=== PATIENT | female | born 1980 | race Hispanic/Latino ===

== ENCOUNTER 2017-03-22 00:49 | Emergency (ER) | payer OTHER ==
[~2017-03-22] VITALS: Ht 157.5 cm; Wt 72.7 kg
[~2017-03-22 00:49] MED LIST: IMIP10TA3 PO; OMEP20CA11 PO
[2017-03-22 00:55] VITALS: BP 120/78; RESP 20; O2SAT 96
--- NOTE | 2017-03-22 01:54 | ED.REPORT ---
HPI-Ear Pain/Problem/FB Date of Service Mar 22, 2017 ED Provider: Dr. Scott Mackenzie The patient is a 36 year old female w/ a hx of ear infections who presents to the ED with bilateral ear pain onset 6 days ago. C/o associated sore throat and reports that both her ears have been draining excessively. The patient just completed a second round of antibiotics for similar symptoms about a week ago. She was recently in the [facility] and she went swimming in the ocean but not in any fresh bodies of water. Nursing Notes Stated Complaint: EAR PAIN,BOTH EARS Chief Complaint: ENT & Mouth Nursing Notes Reviewed: Yes Allergies: Coded Allergies: No Known Allergies (Verified Allergy, Unknown, 06/06/15) Scheduled Ciprofloxacin (Cipro) 500 Mg Tablet 500 MG PO BID Imipramine HCl (Imipramine HCl) 10 Mg Tablet 10 MG PO HS Omeprazole (Omeprazole) 20 Mg Capsule.dr 20 MG PO DAILY General Time Seen by MD: 01:53 Chief Complaint Ear problem bilateral Hx Obtained From: Patient Arrived By: Walk-in Location: : Inner ear Quality: Painful Severity: Current: Mild Recent Healthcare: Recent doctor visit Similar Sx Previous: Yes Past Medical History Past Medical History eczema Past Surgical History kidney stents Reports: Smoking History Light Tobacco Smoker Social History Alcohol Use: "Social" Drug Use: Denies drug use Other Social History: 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 Physical Exam Initial Vital Signs Vital Signs (First) Date Time Temp Pulse Resp B/P Pulse Ox O2 Delivery O2 Flow Rate FiO2 03/22/17 00:55 36.7 91 20 120/78 96 Room Air Initial VS: Reviewed General/Constitutional: Awake, Alert, Cooperative ENT: Airway patent purulent discharge bilateral swollen and tender could not see inside ears very well due to discharge narrow canals tragus tender on both sides no trismus Head / Eyes: Atraumatic, Normocephalic, PERRL, EOMI Skin: Atraumatic, Warm, Dry Neurologic: Oriented X3, Speech NL, No motor deficits Upper Extremity / MS: Atraumatic, Inspection NL, No deformity Wrist / Hand: Atraumatic, Inspection NL, No deformity Lower Extremity / Pelvis / MS: Atraumatic, Inspection NL, No deformity Ankle / Foot: Atraumatic, Inspection NL, No deformity Re-Eval/Medical Decision Med Decision/Clinical Course 36-year-old with recurrent and persistent otitis externa and media, temporally related to swimming in the ocean in the [facility]. Unknown antibiotics previously used. Home now with Ciprodex plus Cipro orally. Follow up with ENT Dr. Sigala. Discharge & Departure Primary Impression: Otitis externa Otitis externa type: unspecified type Laterality: bilateral Chronicity: chronic Qualified Code: H60.63 - Unspecified chronic otitis externa, bilateral Additional Impression: Otitis media Otitis media type: suppurative Laterality: bilateral Chronicity: acute Recurrence: recurrent Spontaneous tympanic membrane rupture: with spontaneous rupture Qualified Code: H66.016 - Acute suppurative otitis media with spontaneous rupture of ear drum, recurrent, bilateral Disposition: Home Discharge Condition All VS Reviewed: Yes Condition: Stable Patient Instructions: Otitis Media (ED) Additional Instructions: Thank you for entrusting us with your care today. I am sending you home with another round of antibiotics and ear drops. Do not continue to put hydrogen peroxide into your ears. Use Tylenol and Ibuprofen as needed for pain. Follow up with your primary care physician and the [facility]. Return to the Emergency Department if you experience any new or worsening symptoms. I hope you feel better soon! Referrals: NOPCP (PCP) Sonny Sigala MD Attestation Portion of this note were transcribed by Megan Latham. I, Dr. Mackenzie, personally performed the history, physical exam, and medical decision-making: I reviewed and confirmed the accuracy for the information in the transcribed note. Signed by: isaiah Fam, 03/22/17 0300 copies to: Sonny Sigala MD, Christopher W MD Mar 22, 2017 01:54 Megan Latham Mar 22, 2017 02:00
[2017-03-22] MEDS ORDERED: CIPR-231 PO (02:20)
[2017-03-22] MEDS ORDERED: Ciprofloxacin-Dexamethasone 7.5 mL Otic Susp BOTH_EARS SCH ×2 (02:30→06:30)
== END 2017-03-22 02:39 | disposition home or self-care (01) ==
LOC: SED 00:49
DX: H60.63 Unspecified chronic otitis externa, bilateral (principal); H66.016 Acute suppurative otitis media with spontaneous rupture of ear drum, recurrent, bilateral; J02.9 Acute pharyngitis, unspecified; F17.200 Nicotine dependence, unspecified, uncomplicated

== ENCOUNTER 2017-06-14 17:04 | Emergency (ER) | payer OTHER ==
[~2017-06-14] VITALS: Ht 157.5 cm; Wt 70.5 kg
[~2017-06-14 17:04] MED LIST changes: +CIPR-231 PO
[2017-06-14 17:16] VITALS: BP 128/66; PULSE 85; RESP 16; O2SAT 100
--- NOTE | 2017-06-14 18:33 | ED.REPORT ---
HPI-Extremity Problem Lower Date of Service Jun 14, 2017 ED Provider: Montrell Mena DO Pt is an otherwise healthy 37 year old female who presents to the ED complaining of right knee pain onset 2 weeks ago. She c/o associated numbness to her toes and right thigh numbness. Pt also reports paresthesia in her toes and the dorsal aspect of her foot. She denies back pain and trauma to her right leg. The pt reports that she is unable to move her right leg while laying down secondary to weakness, and her pain is exacerbated with movement. Although she denies a history of DM and HTN, she reports that DM and HTN are in her family history. The pt has experienced similar pain 7 years ago, and she states that her x-ray was negative. She reports that she is able to walk, but she limps. Nursing Notes Stated Complaint: RIGHT KNEE PAIN, TINGLING IN RIGHT ANKLE/FOOT Chief Complaint: Extremity Trauma Nursing Notes Reviewed: Yes Allergies: Coded Allergies: No Known Allergies (Verified Allergy, Unknown, 06/06/15) Scheduled Ciprofloxacin (Cipro) 500 Mg Tablet 500 MG PO BID Imipramine HCl (Imipramine HCl) 10 Mg Tablet 10 MG PO HS Omeprazole (Omeprazole) 20 Mg Capsule.dr 20 MG PO DAILY General Time Seen by MD: 18:33 Chief Complaint Other (Knee pain right) Hx Obtained From: Patient Arrived By: Walk-in Onset Occurred: 1 week ago Symptom Duration: Since onset Location: : Knee right: Leg right Quality: Painful Severity: Current: Moderate Severity: Maximum: Moderate Recent Healthcare: No recent doctor visit, No recent hospitalization Similar Sx Previous: Yes Past Medical History Past Medical History eczema Denies: Asthma, Diabetes mellitus, Hypertension Past Surgical History kidney stents Reports: Family History Asthma Reports: Diabetes mellitus, Hypertension Smoking History Light Tobacco Smoker Social History Alcohol Use: "Social" Drug Use: Denies drug use Other Social History: Good social support, 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 Physical Exam Initial Vital Signs Vital Signs (First) Date Time Temp Pulse Resp B/P Pulse Ox O2 Delivery O2 Flow Rate FiO2 06/14/17 17:16 37.3 85 16 128/66 100 Room Air Initial VS: Reviewed Head / Eyes: Atraumatic, Normocephalic Neck: Supple, Full range of motion Respiratory: Breath sounds normal, Clear to auscultation, No respiratory distress Cardiovascular: Regular rate & rhythm, Heart sounds normal, Intact distal pulses Abdomen / GI: Soft, Non-tender Upper Extremities: Vascular intact, Neuro intact Skin: Warm, Dry, No cyanosis Neurologic: Alert, Oriented, Nonfocal Psychiatric: Mood/affect normal, Behavior normal Lower Extremity / Pelvis / MS: Atraumatic Strong pulses. Weakness at right hip flexion extension. Weakness at right knee flexion extension. Ankle / Foot: Atraumatic Decreased sensation to dorsal aspect of right foot. General/Constitutional: Awake, Alert Interpretation & Diagnostics CT BRAIN WITHOUT CONTRAST: IMPRESSION: 1. No acute intracranial abnormality. Dictated by: Linden Paul M.D. on 06/14/2017 at 19:50 CT LUMBAR SPINE: CONCLUSION: No CT evidence of acute osseous pathology. There is minimal disc bulge at L4-5. Transmitted to the ED at 22:45 by Bjorn Shaw M.D. Lab Results Interpretation Result Diagram: 06/14/17204906/14/172049 Test 06/14/17 20:50 White Blood Count 9.8th/mm3 (3.8-10.1) Red Blood Count 4.79mil/mm3 (3.90-5.20) Hemoglobin 13.9g/dL (12.0-15.6) Hematocrit 41.5% (35.0-46.0) Mean Corpuscular Volume 86.6fL (81-100) Mean Corpuscular Hemoglobin 29.0pg (27.0-35.0) Mean Corpuscular Hemoglobin Concent 33.5% (32.0-37.0) Red Cell Distribution Width 13.3% (12.3-15.4) Platelet Count 154bil/L (150-400) Neutrophils (%) (Auto) 73.3% (40-74) Lymphocytes (%) (Auto) 21.1% (14-46) Monocytes (%) (Auto) 4.0% (4-12) Eosinophils (%) (Auto) 1.3% (0-5) Basophils (%) (Auto) 0.2% (0-3) Sodium Level 142mEq/L (134-144) Potassium Level 3.7mEq/L (3.5-5.2) Chloride Level 105mEq/L (97-108) Carbon Dioxide Level 22mmol/L (18-29) Blood Urea Nitrogen 12mg/dL (6-20) Creatinine 0.51mg/dL (0.57-1.00) Estimat Glomerular Filtration Rate 194mL/min (>59) Glucose Level 150mg/dL (60-99) Calcium Level 8.8mg/dL (8.5-10.1) Total Bilirubin 0.4mg/dL (0.0-1.2) Aspartate Amino Transf (AST/SGOT) 13U/L (0-50) Alanine Aminotransferase (ALT/SGPT) 11U/L (0-32) Alkaline Phosphatase 46U/L (25-150) C-Reactive Protein 0.1mg/dL (0.0-0.5) Total Protein 6.9g/dL (6.4-8.4) Albumin 4.0g/dL (3.4-5.0) Procalcitonin 0.02ng/mL (0.00-0.08) Hold Robles Top Tube Received (Received) Re-Eval/Medical Decision Med Decision/Clinical Course This is a difficult case. 37-year-old female 2 weeks of right knee weakness. Today she had some numbness in the dorsal aspect of her foot as well as increasing weakness. The weakness started about the knee and has not seemed to propagate. She thought that her right hip felt weak as well but it is hard for her to say. Some range of motion of her knee causes pain. Evidently she has had this in the past and she had normal x-rays. She did not injure herself in any way tonight on examination she could dorsiflex and plantar flex at the ankle on the weaker right than the left she could flex and extend at the right knee although weaker right than the left symmetric patellar reflexes and she had good quadriceps strength with hip flexion and extension. She had almost no back pain whatsoever. Decreased sensation on dorsal aspect of her foot. Bounding pulses. I wanted MRI or lumbar spine where MRI is broken. We performed a CT with IV contrast is obvious space-occupying mass or lytic lesions seen. CT of her brain was normal. Labs look good. I recommended hospital admission so he did not MRI and have neurology see her in the morning. She declined this. Sterile serous states that she had to get home tonight but she will come back tomorrow if she is not able to see her doctor or the neurologist that we referred her to. She has a follow-up that she made about 2 weeks ago when she first did feel the need weakness on the right. Her follow- up is for this I believe. Guillain-[place] seems unlikely. There certainly is no ascending paralysis. DVT was ruled out. Acute arterial insufficiency was ruled out. I think an MRI as an next best step. She plans on coming back in the morning for this. She was discharged in stable condition. Source of Hx: Old records Re-Evaluation/Progress #1: Time of Eval: 23:44 Re-Evaluation/Progress Note: Pt rechecked. Informed pt of results and plan for US. Offered pt admission, but she wishes to go home. All questions addressed. Re-Evaluation/Progress #2: Time of Eval: 00:23 Re-Evaluation/Progress Note: Pt rechecked. Informed pt of plan for discharge. Pt understands and agrees with plan for discharge. F/U instructions and RTER warnings given. All questions addressed. Consultation : Referral / Consult Name: Linden Paul MD Call Returned at: 19:53 Note: Consulted with radiologist. Discussed need for MRI. Counseled Regarding: Diagnosis, Lab results, Need for follow-up, When/why to return to ED Discharge & Departure Impression: Primary Impression: Right leg pain Additional Impression: Right leg weakness Disposition: Home Discharge Condition All VS Reviewed: Yes Condition: Stable Patient Instructions: Leg Pain (ED), Weakness (ED) Additional Instructions: The ultrasound did not show evidence of a blood clot. The CAT scan of your low back did not show an abscess or any abnormalities other than a mild disc bulge at L4-L5. The cause of your right knee weakness is uncertain. I do still think that you need an MRI which we should be able to do later today. I expect that you would like to go home for tonight. I do think you need to be seen later today. See either your doctor or come back to the emergency department. If your symptoms are improving then by all means keep the appointment that you have set up for . If the symptoms seem to be worsening in any way that I definitely want to come back here. You laboratory work was otherwise normal. The cause of your symptoms is uncertain and needs close follow-up. Referrals: NOPCP (PCP) Beverly Graham MD [place] Attestation Portions of this note were transcribed by Siena Rasmussen. I, Dr. Mena personally performed the history, physical exam and medical decision-making; I reviewed and confirmed the accuracy of the information in the transcribed note. Signed by : Rajesh Parkinson, 06/14/17. copies to: Beverly Graham MD; NOPCP Montrell Mena DO Jun 14, 2017 18:33 Siena Hodges Jun 14, 2017 18:59
--- NOTE | 2017-06-14 19:53 | DRSVH ---
PROCEDURE: CT BRAIN WITHOUT CONTRAST ([id number]) INDICATIONS: right leg weakness TECHNIQUE: Noncontrast 4.5 mm thick angled axial sections acquired from the foramen magnum to the vertex, with c oronal reformats. COMPARISON: None. FINDINGS: Image quality: Excellent. CSF spaces: Basal cisterns are patent. No extra-axial fluid collections. Ventricles are normal in size and shape. Brain: No intracranial hemorrhage, mass, or mass effect. Caballero-white matter interface is preserved. Skull and face: Calvarium and visualized facial bones are intact, without suspicious lesions. Sinuses: Visualized sinuses and mastoids are clear. IMPRESSION: 1. No acute intracranial abnormality. Dictated by: Linden Paul M.D. on 06/14/2017 at 19:50 Approved by: Linden Paul M.D. on 06/14/2017 at 19:51
[2017-06-14 21:01] LABS: BASOPHILS % (AUTO) 0.2 % (0-3); EOSINOPHILS % (AUTO) 1.3 % (0-5); Mean Corpuscular Volume 86.6 fL (81-100); NEUTROPHILS % (AUTO) 73.3 % (40-74); Platelet Count 154 bil/L (150-400)
[2017-06-14 23:18] VITALS: BP 111/57; PULSE 66; RESP 18; O2SAT 99
[2017-06-14 23:53] VITALS: BP 100/60; PULSE 73; RESP 14; O2SAT 98
[2017-06-15] MEDS ORDERED: Dexamethasone Inj 10 MG in 0.9% Sodium Chloride-Pha MIX 50 ML IV ONE (00:25)
[2017-06-15] MEDS ORDERED: Sodium Chloride LOK Flush 10 mL Syringe IVFLUSH SCH (00:30)
[2017-06-15 01:13] VITALS: BP 108/66; PULSE 75; RESP 20; O2SAT 96
--- NOTE | 2017-06-15 07:54 | DRSVH ---
PROCEDURE: US VEINOUS LEG DUPLEX UNILATERAL, RIGHT INDICATIONS: right leg and calf pain TECHNIQUE: Real-time imaging, as well as color and pulse Doppler interrogation, were performed of the lower extr emity deep veins from the inguinal ligament to the popliteal fossa. COMPARISON: [facility], [place], PELVIS SONO TRANSVAGINAL (PNL), 05/08/2015, 13:59. FINDINGS: The deep veins are normally compressible, and free of intraluminal thrombus. Color and pu lse Doppler demonstrate normal phasic intraluminal flow. There is normal augmentation response to di stal compression maneuver. IMPRESSION: No sonographic evidence of deep venous thrombus In the right lower extremity. Please note the peroneal vein is not identified and cannot be evaluated . Dictated by: Aldo Borja M.D. on 06/15/2017 at 7:52 Approved by: Aldo Borja M.D. on 06/15/2017 at 7:53
--- NOTE | 2017-06-15 08:28 | DRSVH ---
PROCEDURE: CT LUMBAR SPINE WITH CONTRAST ([id number]) INDICATIONS: back pain, right leg weak and numb, unable to mri TECHNIQUE: After the administration of intravenous Isovue contrast, 3 mm thick sections acquired through the lev els of interest. Sagittal and coronal reformats were then constructed. For radiation dose reduction , the following was used: automated exposure control. COMPARISON: None. FINDINGS: Preliminary report by manager shift radiology Image quality: Excellent. 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 No compression deformity or destructive proce ss. Alignment is normal. Soft tissues: Disc spaces are maintained in height. There is mild posterolateral annular bulge at the L3-4 level, right greater than left, causing mild c entral canal and foraminal stenosis. Broad-based annular bulge and mild facet arthropathy with ligamentous thickening at L4-5 causes moder ate central canal stenosis, thecal sac measuring 7.9 mm in sagittal diameter. There is mild bilateral foraminal stenosis. There is mild bilateral foraminal stenosis at that level. At L5-S1, there is mild annular bulge with out stenosis. IMPRESSION: 1. 3 level annular bulging at L3-4, L4-5 and L5-S1, most marked at L4-5 where there is moderate centr al canal stenosis. 2. No acute bony abnormality. Mild facet arthropathy L4-5 bilaterally. Findings are concordant with the preliminary report. Dictated by: Arpit Luque M.D. on 06/15/2017 at 8:19 Approved by: Arpit Luque M.D. on 06/15/2017 at 8:26
== END 2017-06-15 01:14 | disposition home or self-care (01) ==
LOC: SED 17:04
DX: M25.561 Pain in right knee (principal); M62.81 Muscle weakness (generalized); F17.200 Nicotine dependence, unspecified, uncomplicated
CPT/HCPCS: 36415; 70450; 72132; 80053; 84145; 85025; 86140; 93971; 96361; 96374; 99285; J1100; Q9967